=== PATIENT | male | born 1970 | race African-American/Black ===

== ENCOUNTER 2020-11-10 09:38 | Emergency (ER) | payer OTHER | END 2020-11-10 11:16 | disposition home or self-care (01) | LOC: EDH 09:38 | DX: Z04.1 Encounter for examination and observation following transport accident (principal); V49.49XA Driver injured in collision with other motor vehicles in traffic accident, initial encounter; Y93.89 Activity, other specified; Y92.89 Other specified places as the place of occurrence of the external cause; Y99.8 Other external cause status ==